=== PATIENT | male | born 1965 | race Hispanic/Latino ===

== ENCOUNTER 2018-05-23 20:45 | Emergency (ER) | payer SELFPAY ==
[2018-05-23 21:36] VITALS: TEMP 97.5; O2SAT 100
[2018-05-23] MEDS ORDERED: diazePAM 5 MG TAB PO ONE (22:21)
[2018-05-23] MEDS ORDERED: MECLIZINE HCL 12.5 MG TAB PO ONE (22:21)
--- NOTE | 2018-05-23 22:27 | ED.PDOC ---
History of Present Illness - General Chief Complaint: ENT Problem Time Seen by Provider: 05/23/18 22:22 Source: patient, RN notes reviewed Additional Information: 53 YEAR OLD WHITE MALE PRESENTS WITH SUDDEN ONSET OF DIZZINESS NEAR SYNCOPE HE THEN STARTED HYPERVENTILATING AND EXPERIENCED TINGLING AROUND HIS LIPS AND BOTH UPPER EXTREMTIES HE HAS CHRONIC TINNITUS HARD OF HEARING HISTORY OF LEFT EAR INFECTION WITH TM PERFORATION HE HAS NO HEADACHE NO LOSS OF SENSATION NO LOSS OF MOTOR STRENGTH HE HAS NO RISK FACTORS FOR ATHEROSCLEROSIS NO HTN NO DISLIPIDEMIA NO DIABETES NON SMOKER HE HAS BEEN EXERCISING AND TAKING SUPPLEMENTS FOR WEIGHT LOSS HE HAS LOST 15 POUNDS SINCE APR - History of Present Illness Timing/Duration: 4-6 hours Severity: moderate Improving Factors: nothing, movement Worsening Factors: nothing Associated Symptoms: denies symptoms Allergies/Adverse Reactions: Allergies NO KNOWN ALLERGY Allergy (Verified 05/23/18 21:36) Home Medications: Ambulatory Orders Diazepam [Valium] 2 mg PO Q8HR #30 tab 05/23/18 Meclizine HCl [Antivert] 25 mg PO TID #30 tab 05/23/18 Review of Systems - Review of Systems Constitutional: States: no symptoms reported EENTM: States: no symptoms reported Respiratory: States: no symptoms reported Cardiology: States: no symptoms reported Gastrointestinal/Abdominal: States: no symptoms reported Genitourinary: States: no symptoms reported Musculoskeletal: States: no symptoms reported Skin: States: no symptoms reported Neurological: States: no symptoms reported Endocrine: States: no symptoms reported Hematologic/Lymphatic: States: no symptoms reported Past Medical History (General) - Patient Medical History Hx Seizures: No Hx Stroke: No Hx Dementia: No Hx Asthma: No Hx of COPD: No Hx Cardiac Disorders: No Hx Congestive Heart Failure: No Hx Pacemaker: No Hx Hypertension: No Hx Thyroid Disease: No Hx Diabetes: No Hx Gastroesophageal Reflux: No Hx Renal Disease: No Hx Cancer: No Hx of HIV: No Hx Hepatitis C: No Hx MRSA: No - Vaccination History Hx Tetanus, Diphtheria Vaccination: Yes Hx Influenza Vaccination: No - Social History Hx Alcohol Use: Yes - social Family Medical History - Family History Mother Family History: Unknown Physical Exam - Physical Exam General Appearance: Alert, Comfortable Eye Exam: bilateral normal Ears, Nose, Throat: hearing grossly normal, normal ENT inspection, normal pharynx Neck: non-tender, full range of motion, supple Cardiovascular/Chest: normal peripheral pulses, regular rate, rhythm, no gallop , no JVD, no murmur Gastrointestinal/Abdominal: normal bowel sounds, non tender, soft, no organomegaly, no pulsatile mass Back Exam: normal inspection, no CVA tenderness, no vertebral tenderness Neurologic: client care specialist II-XII nml as tested, no motor/sensory deficits, alert, normal mood/affect, oriented x 3 Skin Exam: normal color, warm/dry Lymphatic: no adenopathy Departure - Departure Clinical Impression: Vertigo, Meniere's disease Time of Disposition: 22:32 Disposition: Discharge to Home or Self Care Condition: Good Departure Forms: ED Discharge - Pt. Copy, Patient Portal Self Enrollment Prescriptions: Diazepam [Valium] 2 mg PO Q8HR #30 tab Meclizine HCl [Antivert] 25 mg PO TID #30 tab Home Medications: Ambulatory Orders Diazepam [Valium] 2 mg PO Q8HR #30 tab 05/23/18 Meclizine HCl [Antivert] 25 mg PO TID #30 tab 05/23/18 Comments: FOLLOW UP WITH YOUR PCP DO NOT OPERATE MACHINERY OR DRIVE TILL YOUR SYMPTOMS GET RESOLVED
[2018-05-23] MEDS ORDERED: POTASSIUM CHLORIDE ELIXIR 20 MEQ/15 ML UD PO ONE (22:56)
[2018-05-23 23:58] VITALS: BP 119/78
== END 2018-05-23 23:25 | disposition home or self-care (01) ==
LOC: ER 20:45
DX: R42 Dizziness and giddiness (principal); H81.09 Meniere's disease, unspecified ear; R55 Syncope and collapse